=== PATIENT | female | born 1990 | race Asian ===

== ENCOUNTER 2016-06-04 01:40 | Day surgery (SDC) | payer OTHER ==
[2016-06-04 04:54] LABS: Hematocrit 40 % (35-47); Hemoglobin 13.6 g/dl (12.0-16.0); Mean Corpuscular HGB Conc 34 g/dl (31-36); Mean Corpuscular Hemoglobin 28 pg (27-31); Mean Corpuscular Volume 83 fL (80-97); Mean Platelet Volume 7 um3 (7.4-10.4); Red Blood Count 4.86 10^6/ul (4.0-5.4); Red Cell Distribution Width 12 % (10.5-15); White Blood Count 18.3 10^3/ul (3.5-10.8)
[2016-06-04 04:58] LABS: Manual Entry Verification LOR0008; UR Preg Internal Control QC Line Present; Urine Bilirubin Negative (Negative); Urine Glucose Negative (Negative); Urine Nitrite Negative (Negative)
[2016-06-04 05:09] LABS: Albumin 4.5 g/dL (3.2-5.2); BUN/Creatinine Ratio 16.4 (8-20); Calcium 9.6 mg/dL (8.6-10.3); EGFR Non-African American 120.5 (>60); Globulin 3.2 g/dL (2-4); Potassium 3.6 mmol/L (3.5-5.0); Total Bilirubin 0.3 mg/dL (0.2-1.0); Total Protein 7.7 g/dL (6.4-8.9)
[2016-06-04] MEDS ORDERED: Iohexol 300* (CONTRAST) 10 ML SDV IV ONE (07:11)
--- NOTE | 2016-06-04 08:08 | RAD ---
CLINICAL HISTORY: Right lower quadrant tenderness, nausea COMPARISON: None TECHNIQUE: Multiple contiguous axial CT scans were obtained of the abdomen and pelvis after the administration of intravenous contrast. Coronal and sagittal multiplanar reformations are submitted for review. Oral contrast was administered. Delayed images were obtained through the abdomen and pelvis. FINDINGS: LUNG BASES: The lung bases are clear. LIVER: The liver is normal in shape, size, contour, and attenuation. BILE DUCTS: There is no intrahepatic or extrahepatic biliary dilatation. GALLBLADDER: The gallbladder is normal, without pericholecystic inflammatory change. PANCREAS: The pancreas is normal, without mass or ductal dilatation. SPLEEN: Normal in size and appearance. UPPER GI TRACT: Evaluation of the gastrointestinal tract is limited by incomplete gastric distention. The upper GI tract is unremarkable. SMALL BOWEL AND MESENTERY: The small bowel is normal in contour, course, and caliber. There is no obstruction or dilatation. COLON: The appendix is identified. The appendix is at the upper limits of normal in caliber with mild hyperemia, small appendicolith, and mild stranding of the mesoappendix. There is no periappendiceal inflammatory change. ADRENALS: Normal bilaterally. KIDNEYS: The kidneys are normal in shape, size, contour, and axis. There is no hydronephrosis or nephrolithiasis. BLADDER: The bladder is smooth in contour. PELVIC ORGANS: The uterus and adnexa are grossly normal for technique. AORTA: The aorta is normal. IVC: Unremarkable LYMPH NODES: There is no lymphadenopathy by size criteria. ABDOMINAL WALL: There is no evidence for abdominal wall hernia. BONES AND SOFT TISSUES: Unremarkable OTHER: None IMPRESSION: THE APPENDIX IS AT THE UPPER LIMITS OF NORMAL IN SIZE, WITH A SMALL APPENDICOLITH AND MILD PERIAPPENDICEAL INFLAMMATORY CHANGE. IN THE CORRECT CLINICAL SETTING THIS MAY REPRESENT EARLY ACUTE APPENDICITIS.
--- NOTE | 2016-06-04 10:53 | ED ---
Aman Wynn Adam, scribed for Ayad Canada MD on 06/04/16 at 0732 . Progress - Progress Note Progress Note: This patient was signed out to me by Dr. Johnson at 07:00. She came to the ED for abdominal pain. 07:35 - The pt is awaiting a CT scan. She is currently in no pain (0/10). The pain set on in her abdomen at midnight and has been resolved for several hours now. LMP was last month. She also c/o nausea and diarrhea earlier this morning. CT ABDOMEN/PELVIS - IMPRESSION: THE APPENDIX IS AT THE UPPER LIMITS OF NORMAL IN SIZE, WITH A SMALL APPENDICOLITH AND MILD PERIAPPENDICEAL INFLAMMATORY CHANGE. IN THE CORRECT CLINICAL SETTING THIS MAY REPRESENT EARLY ACUTE APPENDICITIS. Discussed Care of Patient With Dr. Juarez (Surgery) at 08:20. This patient was signed out to me by Dr. Johnson at 07:00. She came to the ED for abdominal pain. 07:35 - The pt is awaiting a CT scan. She is currently in no pain (0/10). The pain set on in her abdomen at midnight and has been resolved for several hours now. LMP was last month. She also c/o nausea and diarrhea earlier this morning. Physical Exam: VITAL SIGNS: Reviewed. GENERAL: Patient is a well developed and nourished who is lying comfortable in the stretcher. Patient is not in any acute respiratory distress. HEAD AND FACE: Normocephalic and atraumatic. EYES: PERRLA, EOMI x 2, No injected conjunctiva. EARS: Hearing grossly intact. Ear canals and tympanic membranes are WNL. MOUTH: Oropharynx within normal limits. NECK: Supple, trachea is midline, no adenopathy, no JVD. CHEST: Symmetric, no tenderness at palpation LUNGS: Clear to auscultation bilaterally. No wheezing or crackles. CVS: RRR,, S1 and S2 present, no murmurs or gallops appreciated. ABDOMEN: Soft, non-tender. No signs of distention. Positive bowel sounds. No rebound no guarding, and no masses palpated. No abdominal bruit or pulsations. EXTREMITIES: FROM in all major joints, no edema, no cyanosis or clubbing. NEURO: Alert and oriented x 3. No acute neurological deficits. Speech is normal. SKIN: Dry and warm Assestment and plan: Blood test are found within normal limits except for WBCs 18.3, and UA is negative. Abdominal and pelvic CT: IMPRESSION: THE APPENDIX IS AT THE UPPER LIMITS OF NORMAL IN SIZE, WITH A SMALL APPENDICOLITH AND MILD PERIAPPENDICEAL INFLAMMATORY CHANGE. IN THE CORRECT CLINICAL SETTING THIS MAY REPRESENT EARLY ACUTE APPENDICITIS. I discussed the case with Dr. Juarez and he will consult for the patient. In the ED course IV fluids. was given She is feeling better. She denies any pain, nausea, vomiting or diarrhea. Dr. Juarez assess patient and he admitted the patient for an appendectomy. She is hemodynamically stable and she is alert and oriented x 3. Final Impression: Acute appendicitis. Course/Dx - Diagnoses Provider Diagnoses: Acute appendicitis The documentation as recorded by the Aman jacobs Adam accurately reflects the service I personally performed and the decisions made by me, Ayad Canada MD.
[2016-06-04] MEDS ORDERED: ceFAZolin 2 GM PREMIX(*) 2 GM/50 ML BAG IVPB ONE (11:19)
[2016-06-04] MEDS ORDERED: Bupivacaine 0.25% EPI 200,000* 30 ML SDV ONE (11:25)
[2016-06-04] MEDS ORDERED: Midazolam* 1 MG/ML 2 ML VIAL (2 MG) ONE (11:32)
[2016-06-04] MEDS ORDERED: Famotidine IV* 10 MG/ML 2 ML (20 mg) ONE (11:32)
[2016-06-04] MEDS ORDERED: fentaNYL* 50 MCG/ML 2 ML VIAL (100 MCG VIAL) ONE ×2 (11:32→12:14)
[2016-06-04] MEDS ORDERED: Buffered Lidocaine 1% SYRIN* 3 ML/SYR SYRINGE INTRADERM ONE (11:44)
[2016-06-04] MEDS ORDERED: DiMENhydriNATE IV* 50 MG/ML VIAL IV PUSH PRN (11:44)
[2016-06-04] MEDS ORDERED: HYDROmorphone* 1 MG/ML 1 ML SYR IV PRN (11:44)
[2016-06-04] MEDS ORDERED: fentaNYL* 50 MCG/ML 2 ML VIAL (100 MCG VIAL) IV PRN (11:44)
[2016-06-04] MEDS ORDERED: PROCHLORPERAZINE INJ 5 MG/ML 2 ML VIAL IV PRN (11:44)
[2016-06-04] MEDS ORDERED: Levalbuterol 0.63MG/3ML NEB INH PRN (11:44)
[2016-06-04] MEDS ORDERED: Acetaminophen TAB* 325 MG PO PRN (11:44)
[2016-06-04] MEDS ORDERED: Ondansetron INJ* 2 MG/ML VIAL IV PRN (11:44)
[2016-06-04] MEDS ORDERED: Rocuronium* 10 MG/ML VIAL ONE (12:01)
[2016-06-04] MEDS ORDERED: Bacitracin OINTMENT* 1 TUBE ONE (12:44)
--- NOTE | 2016-06-04 12:48 | SURGPN ---
Brief Operative Note - Surgery Procedures: Pre-OP Diagnoses: acute appendicitis Post-op Diagnosis: same Procedure: Laparoscopic appendectomy Surgeon: Chris Asst: Lizzy [id number] Anethesia: DALLAS Brown EBL: minimal IVF: 800cc crystalloid Specimen: appendix Drains: none
[2016-06-04] MEDS ORDERED: Succinylcholine* 20 MG/ML 10 ML VIAL ONE (12:54)
[2016-06-04] MEDS ORDERED: Ketorolac INJ* 30 MG/ML 1 ML VIAL ONE (12:54)
[2016-06-04] MEDS ORDERED: Dexamethasone IV* 4 MG/ML 1 ML (4 MG) ONE (12:54)
[2016-06-04] MEDS ORDERED: Ondansetron INJ* 2 MG/ML VIAL ONE (12:54)
[2016-06-04] MEDS ORDERED: Propofol* 10 MG/ML 20 ML BTL IV PUSH ONE (12:54)
[2016-06-04] MEDS ORDERED: Lidocaine 2% PF* 5 ML VIAL ONE (12:54)
[2016-06-04] MEDS ORDERED: Acetaminophen TAB* 325 MG ONE (14:08)
[2016-06-04 15:34] VITALS: BP 120/87
--- NOTE | 2016-06-04 20:01 | HP ---
ADMISSION HISTORY AND PHYSICAL: DATE OF ADMISSION: 06/04/16 PATIENT OF: Dr. Francisco Perez. (dictated by MARIEL Kelly) REASON FOR ADMISSION: Right lower quadrant abdominal pain. HISTORY OF PRESENT ILLNESS: Ms. Dupont is a pleasant 26-year-old female, who presented to the emergency room in the advanced practice professional hours of 06/04/16 with complaints of few hours' history of abrupt abdominal pain. The patient notes that she was in her usual state of health and suddenly at midnight, she experienced acute onset of severe vague diffuse abdominal pain. She described it as dull ache and pain with sharp episodes, diffuse to mid and lower abdomen, and gradually starts shifting to the right side. She denied any associated nausea or vomiting. She presented to the emergency room and had a CT scan of the abdomen and pelvis that was consistent with findings of acute appendicitis. Given her ongoing symptoms and findings of the CT scan, we were asked to see the patient for further evaluation and to discuss possible appendectomy. PAST MEDICAL HISTORY: Essentially unremarkable. She denies any history of lung , liver, heart, or kidney disease. PAST SURGICAL HISTORY: None. MEDICATIONS AT HOME: She does not take any medication at home on a regular basis. ALLERGIES: No known drug allergies. FAMILY HISTORY: Noncontributory. SOCIAL HISTORY: The patient is a nonsmoker, who denies alcohol intake and caffeine intake is minimal. She is a student at [employer]. REVIEW OF SYSTEMS: See HPI, otherwise negative. She denied any headache, dizziness, blurred vision. She reports frequent episodes of cough last week for which she was diagnosed with pneumonia and she just finished her Z-Angelo treatment 2 days ago. She denies any cough, shortness of breath, fever, or chills in the past few days. No dysuria, hematuria, flank pain. PHYSICAL EXAMINATION GENERAL: She is a pleasant, healthy female, appears comfortable, and in no acute distress or discomfort at the time of admission. VITAL SIGNS: Her vitals were stable. The patient was afebrile. HEENT: Sclerae anicteric. PERRLA. EOMs intact. Oropharynx is pink, moist with no exudate. NECK: Supple. Trachea midline. No cervical adenopathy, thyromegaly, or JVD. LUNGS: Clear to auscultation bilaterally. HEART: Regular rate and rhythm. Normal S1 and S2 without rubs, murmurs, or gallops. BACK: Normal curvature. No CVA tenderness. ABDOMEN: Soft and nondistended. Moderate periumbilical and right lower quadrant tenderness noted on palpation. There is some guarding noted but no rigidity. There was some rebound tenderness noted as well and focal tenderness at McBurney's point. No hernias, masses, or hepatosplenomegaly. EXTREMITIES: Without cyanosis, clubbing, or edema. RECTAL EXAM: Deferred at this time. NEUROLOGIC: Grossly intact. DIAGNOSTIC STUDIES/LAB DATA: The patient had a CBC and chemistry workup during her ED visit that revealed leukocytosis. She also had a CT scan of the abdomen and pelvis with finding consistent with acute appendicitis. ASSESSMENT: A 26-year-old female with signs and symptoms as well as CT scan finding consistent with acute appendicitis. PLAN: I went on and discussed with the patient proceeding with laparoscopic appendectomy. We explained to her consequences if no surgical intervention was done at this point. We will also give her the option of treating her with antibiotics and see if any resolution or improvement of her symptoms. The rationale, indications, risks, and benefits of laparoscopic appendectomy were discussed with her today. Risks include, but not limited to, infection, bleeding, or injury to adjacent structures. She seems to understand and wishes to proceed with surgery. She has been kept NPO and had antibiotics prior to going to the operating room. We will follow her up accordingly. MARIEL Kelly [id number]/CPS #: [id number] MTDD
--- NOTE | 2016-06-05 02:48 | OP ---
DATE OF OPERATION: 06/04/16 [facility] DATE OF : 89 SURGEON: Francisco Perez MD CASE HARDENER: HETAL Ball. ANESTHESIA: General. ANESTHESIOLOGIST: Dr. Brown. PRE-OP DIAGNOSIS: Acute appendicitis. POST-OP DIAGNOSIS: Acute appendicitis. OPERATIVE PROCEDURE: Laparoscopic appendectomy. ESTIMATED BLOOD LOSS: Minimal blood loss. FLUIDS: 800 cc of crystalloid fluid given. SPECIMENS: Appendix, non-perforated. DRAINS: None. INSTRUMENT: Lap pad count and instrument count correct at the end of the procedure. The patient extubated, transferred to the PACU for planned discharge home. IDENTIFICATION: Ms. Dupont is a 26-year-old female who I met in the emergency room. She had a workup in the emergency room that included labs and a CAT scan and her physical exam was consistent with acute appendicitis. I recommended a laparoscopic appendectomy. I went over the risks, benefits, and alternatives to the procedure. We did spend time talking of the alternatives, the watchful waiting and antibiotics. My recommendation was for operative intervention and the patient agreed, signed consent. We talked about the possible complications which include, but were not limited to bleeding, infection, bowel injury, bladder injury, need for additional procedures, wound infection, abscess formation, bleeding and infection. DESCRIPTION OF PROCEDURE: The patient was identified in the preoperative area, brought to the OR, placed on the operating table in a supine position. Preoperative antibiotics were given. Sequential devices were placed on bilateral lower extremities. General anesthesia was induced. The patient's abdomen was prepped and draped in a standard surgical fashion. A time-out was performed. A Veress needle was inserted into the abdominal cavity, which was then allowed to insufflate to a pressure of 15 mmHg. The patient tolerated the insufflation well. An incision was made over the Veress needle, which was then removed and 5 mm trocar inserted. Laparoscope was inserted through this. There was no evidence of injury from the trocar insertion. Additional trocars were then placed in the following positions, two 5 mm, one at the suprapubic area, one in the left lower quadrant. Table was repositioned. We identified the appendix. It was indurated, thickened, but non-perforated. No other abnormalities were noted in the abdomen. The appendix was elevated anteriorly and the mesoappendix was taken out at the peritoneal layer with hook cautery. A window was made at the base of the appendix through healthy tissue and with additional dissection, we were able to identify the appendiceal artery. Two branches were identified and these were both doubly clipped and ligated. Next at the appendiceal base, a 0 chromic Endoloop was then utilized. We placed this along the appendix, along the cecal base and we cut the appendix and placed in an endoscopic retrieval bag. The mucosa of the appendix was then cauterized. The appendix was removed through the umbilical port site with its 5 mm bag and passed off as specimen. Review of the abdomen showed no bleeding and no enteric contents. The patient was repositioned to neutral. The abdomen was allowed to collapse. Trocar was removed under direct vision. The umbilical port site was reapproximated with a 3-0 chromic suture in a simple fashion and subcuticular sutures with 4-0 Monocryl were placed at the additional 5 mm trocars. Sterile dressing was applied. The patient tolerated the procedure well, was woken up in the OR and transferred to the PACU in stable condition. PLAN OF DISCHARGE: The patient's postoperative course is expected to be uneventful and for planned discharge home and follow up in our office. CC: [facility] * [id number]/[facility] #: [id number] LYNDA
--- NOTE | 2016-06-05 21:21 | ED ---
Cresencio Wynn Billy, scribed for Jayant Johnson MD on 06/04/16 at 0427 . Abdominal Pain/Female - HPI Summary HPI Summary: Patient is a 26 year-old female coming to [facility] with a complaint of diffuse abdominal pain. She states that she first began to notice "discomfort and bloating" at 2100 yesterday, and the pain worsened at midnight. At that time, severity 7/10. She felt nauseated but denies any fevers, sweats, or chills. Denies any urinary symptoms. At the time that she was seen in the ED, her pain had subsided, but she still felt bloated. Patient reports that she had recently taken a course of antibiotics for pneumonia. - History of Current Complaint Chief Complaint: EDAbdPain Stated Complaint: ABD PAIN Time Seen by Provider: 06/04/16 04:17 Hx Obtained From: Patient Onset/Duration: Gradual Onset Timing: Constant Severity Initially: Moderate Severity Currently: Mild Pain Intensity: 7 Pain Scale Used: 0-10 Numeric Location: Diffuse Aggravating Factor(s): Nothing Alleviating Factor(s): Nothing Associated Signs and Symptoms: Positive: Nausea. Negative: Urinary Symptoms, Vomiting Allergies/Adverse Reactions: Allergies Allergy/AdvReac Type Severity Reaction Status Date / Time No Known Allergies Allergy Verified 06/04/16 01:45 PMH/Surg Hx/FS Hx/Imm Hx Endocrine/Hematology History: Denies: Hx Diabetes Cardiovascular History: Denies: Hx Hypertension - Immunization History Date of Influenza Vaccine: november 2015 Infectious Disease History: No Infectious Disease History: Denies: Traveled Outside the [place] in Last 30 Days - Family History Known Family History: Positive: Hypertension - Social History Alcohol Use: Weekly Substance Use Type: Reports: None Smoking Status (MU): Former Smoker Review of Systems Negative: Fever, Chills Negative: Erythema Negative: Sore Throat Negative: Chest Pain Negative: Shortness Of Breath, Cough Positive: Abdominal Pain, Nausea. Negative: Vomiting Negative: dysuria, frequency, urgency Negative: Myalgia, Edema Positive: Syncope All Other Systems Reviewed And Are Negative: Yes Physical Exam - Summary Physical Exam Summary: Constitutional: Well-developed, Well-nourished, Alert. (-) Distressed Skin: Warm, Dry HENT: Normocephalic; Atraumatic Eyes: Conjunctiva normal Neck: Musculoskeletal ROM normal neck. (-) JVD, (-) Stridor, (-) Tracheal deviation Cardio: Rhythm regular, rate normal, Heart sounds normal; Intact distal pulses; The pedal pulses are 2+ and symmetric. Radial pulses are 2+ and symmetric. (-) Murmur Pulmonary/Chest wall: Effort normal. (-) Respiratory distress, (-) Wheezes, (-) Rales Abd: Soft. Suprapubic and RLQ tenderness. (-) Distension, (-) Guarding, (-) Rebound Musculoskeletal: (-) Edema Lymph: (-) Cervical adenopathy Neuro: Alert, Oriented x3 Psych: Mood and affect Normal Triage Information Reviewed: Yes Vital Signs On Initial Exam: Initial Vitals Temp Pulse Resp BP Pulse Ox 97.4 F 88 20 143/71 100 06/04/16 01:43 06/04/16 01:43 06/04/16 01:43 06/04/16 01:43 06/04/16 01:43 Vital Signs Reviewed: Yes - Simran Coma Scale Coma Scale Total: 15 Diagnostics - Vital Signs Vital Signs Temp Pulse Resp BP Pulse Ox 06/04/16 03:00 77 114/73 100 06/04/16 02:56 79 99 06/04/16 02:55 124/84 06/04/16 01:43 97.4 F 88 20 143/71 100 - Laboratory Lab Results: Lab Results 06/04/16 06/04/16 06/04/16 Range/Units 04:45 04:45 04:45 WBC 18.3 H (3.5-10.8) 10^3/ul RBC 4.86 (4.0-5.4) 10^6/ul Hgb 13.6 (12.0-16.0) g/dl Hct 40 (35-47) % MCV 83 (80-97) fL MCH 28 (27-31) pg MCHC 34 (31-36) g/dl RDW 12 (10.5-15) % Plt Count 273 (150-450) 10^3/ul MPV 7 L (7.4-10.4) um3 Neut % (Auto) 82.4 (38-83) % Lymph % (Auto) 12.6 L (25-47) % Piute % (Auto) 4.1 (1-9) % Eos % (Auto) 0.3 (0-6) % Baso % (Auto) 0.6 (0-2) % Absolute Neuts (auto) 15.1 H (1.5-7.7) 10^3/ul Absolute Lymphs (auto) 2.3 (1.0-4.8) 10^3/ul Absolute Monos (auto) 0.8 (0-0.8) 10^3/ul Absolute Eos (auto) 0 (0-0.6) 10^3/ul Absolute Basos (auto) 0.1 (0-0.2) 10^3/ul Absolute Nucleated RBC 0 10^3/ul Nucleated RBC % 0 Sodium 135 (133-145) mmol/L Potassium 3.6 (3.5-5.0) mmol/L Chloride 102 (101-111) mmol/L Carbon Dioxide 25 (22-32) mmol/L Anion Gap 8 (2-11) mmol/L BUN 10 (6-24) mg/dL Creatinine 0.61 (0.51-0.95) mg/dL Est GFR ( Amer) 155.0 (>60) Est GFR (Non-Af Amer) 120.5 (>60) BUN/Creatinine Ratio 16.4 (8-20) Glucose 104 H (70-100) mg/dL Lactic Acid (0.5-2.0) mmol/L Calcium 9.6 (8.6-10.3) mg/dL Total Bilirubin 0.30 (0.2-1.0) mg/dL AST 15 (13-39) U/L ALT 9 (7-52) U/L Alkaline Phosphatase 38 (34-104) U/L Total Protein 7.7 (6.4-8.9) g/dL Albumin 4.5 (3.2-5.2) g/dL Globulin 3.2 (2-4) g/dL Albumin/Globulin Ratio 1.4 (1-3) Lipase 39 (11.0-82.0) U/L Urine Color Yellow Urine Appearance Clear Urine pH 7.0 (5-9) Ur Specific [place] 1.013 (1.010-1.030) Urine Protein Negative (Negative) Urine Ketones Trace H (Negative) Urine Blood Negative (Negative) Urine Nitrate Negative (Negative) Urine Bilirubin Negative (Negative) Urine Urobilinogen Negative (Negative) Ur Leukocyte Esterase Negative (Negative) Urine Glucose Negative (Negative) Urine Ascorbic Acid * H (Negative) Urine Test Negative (Negative) 06/04/16 Range/Units 04:45 WBC (3.5-10.8) 10^3/ul RBC (4.0-5.4) 10^6/ul Hgb (12.0-16.0) g/dl Hct (35-47) % MCV (80-97) fL MCH (27-31) pg MCHC (31-36) g/dl RDW (10.5-15) % Plt Count (150-450) 10^3/ul MPV (7.4-10.4) um3 Neut % (Auto) (38-83) % Lymph % (Auto) (25-47) % [place] % (Auto) (1-9) % Eos % (Auto) (0-6) % Baso % (Auto) (0-2) % Absolute Neuts (auto) (1.5-7.7) 10^3/ul Absolute Lymphs (auto) (1.0-4.8) 10^3/ul Absolute Monos (auto) (0-0.8) 10^3/ul Absolute Eos (auto) (0-0.6) 10^3/ul Absolute Basos (auto) (0-0.2) 10^3/ul Absolute Nucleated RBC 10^3/ul Nucleated RBC % Sodium (133-145) mmol/L Potassium (3.5-5.0) mmol/L Chloride (101-111) mmol/L Carbon Dioxide (22-32) mmol/L Anion Gap (2-11) mmol/L BUN (6-24) mg/dL Creatinine (0.51-0.95) mg/dL Est GFR ( Amer) (>60) Est GFR (Non-Af Amer) (>60) BUN/Creatinine Ratio (8-20) Glucose (70-100) mg/dL Lactic Acid 0.9 (0.5-2.0) mmol/L Calcium (8.6-10.3) mg/dL Total Bilirubin (0.2-1.0) mg/dL AST (13-39) U/L ALT (7-52) U/L Alkaline Phosphatase (34-104) U/L Total Protein (6.4-8.9) g/dL Albumin (3.2-5.2) g/dL Globulin (2-4) g/dL Albumin/Globulin Ratio (1-3) Lipase (11.0-82.0) U/L Urine Color Urine Appearance Urine pH (5-9) Ur Specific [place] (1.010-1.030) Urine Protein (Negative) Urine Ketones (Negative) Urine Blood (Negative) Urine Nitrate (Negative) Urine Bilirubin (Negative) Urine Urobilinogen (Negative) Ur Leukocyte Esterase (Negative) Urine Glucose (Negative) Urine Ascorbic Acid (Negative) Urine Test (Negative) Result Diagrams: 06/04/16 04:45 06/04/16 04:45 Lab Statement: Any lab studies that have been ordered have been reviewed, and results considered in the medical decision making process. Abdominal Pain Fem Course/Dx - Course Course Of Treatment: 21 y/o female coming to the ED for evaluation of abdominal pain. Patient will be signed out at shift change pending CT abd/pel. - Diagnoses Provider Diagnoses: Acute appendicitis Discharge - Discharge Plan Condition: Stable Disposition: ADMITTED TO [facility] Discharge Disposition Comment: Signed out to ER physician at shift change pending CT abd/pel. The documentation as recorded by the Cresencio jacobs Billy accurately reflects the service I personally performed and the decisions made by , Jayant Johnson MD.
== END 2016-06-04 11:46 | disposition home or self-care (01) ==
LOC: ED 01:40 → OR 11:46
PROVIDERS: ATTEND Surgery
DX: K35.80 Unspecified acute appendicitis (principal); Z87.891 Personal history of nicotine dependence
CPT/HCPCS: 36415; 74177; 80053; 81003; 81025; 83605; 83690; 85025; 88304; 96374; 99283; A9270-GY; C1776; J0330; J0690; J1100; J1885; J2250; J2405; J2704; J3010; Q9967